=== PATIENT | male | born 1990 | race Hispanic/Latino ===

== ENCOUNTER 2017-05-10 04:27 | Emergency (ER) | payer OTHER ==
[2017-05-10 04:38] VITALS: TEMP 98.2; O2SAT 100
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
[2017-05-10 05:27] VITALS: BP 135/80; PULSE 78; RESP 16
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
== END 2017-05-10 05:58 | disposition home or self-care (01) ==
LOC: H.ER 04:27
DX: S09.90XA Unspecified injury of head, initial encounter (principal); W19.XXXA Unspecified fall, initial encounter; Y92.89 Other specified places as the place of occurrence of the external cause